=== PATIENT | female | born 1940 | race Caucasian/White ===

== ENCOUNTER 2016-11-26 17:43 | Emergency (ER) | payer SELFPAY ==
--- NOTE | 2016-11-26 21:07 | ED CLINICAL REPORT ---
Clinical Report - Physicians/Mid Levels [facility] [address] [place] [address] 11/26/2016 17:44 Patient: KRISTINA BO Time Seen: 18:44. Arrived- By private vehicle. Historian- patient. HISTORY OF PRESENT ILLNESS Chief Complaint: Weakness, hasn't been drinking, "I might have a UTI". At its maximum, severity described as moderate. When seen in the E.D., severity described as moderate. Modifying factors. Not worsened by anything. Not relieved by anything. This started several days ago and is still present. The patient has had loss of appetite (chronically). No weight loss, headache, visual disturbance, fatigue or muscle aches. Denies sleep problem. No decreased urine output. She has had new onset of generalized weakness, (mild). (Pt states she gets UTIs a lot, and thinks she may have another one. Pt has also had a cough. She has not been drinking much water, and son states pt has not been getting out of bed as much. No fevers. Pt denies further complaints.). Similar symptoms previously: Occasionally. Recent medical care: Not recently seen/assessed. REVIEW OF SYSTEMS No fever, sore throat, sinus drainage, nasal congestion or cough. No difficulty breathing, chest pain, abdominal pain, nausea or vomiting. No diarrhea, black stools, bloody stools, chills or difficulty with urination. No skin rash, back pain, calf pain, headache or blackouts. No double vision. No difficulty with ambulation. All systems otherwise negative, except as recorded above. PAST HISTORY Problems: Anxiety Reaction. Hypercholesterolemia. Fibromyalgia. Hypertension. Additional Surgeries: Appendectomy. DIAPHRAGM REPAIR. Lumpectomy of breast. Medications: Atorvastatin Calcium Oral (Tablet 40 mg) 1 tablet, at bedtime. AmLODIPine Besylate Oral (Tablet 10 mg) 1 tablet, daily. BuPROPion HBr Oral 150 mg , BID. OxyCODONE HCl Oral (Tablet 10 mg) 1 tablet, 4x a day. ALPRAZolam Oral (Tablet 0.5 mg) 1 tablet, 4x a day as needed. Atenolol Oral (Tablet 50 mg) 1 tablet, 2x a day. Temazepam Oral (Capsule 30 mg) 1 capsule, at bedtime. Allergies: Ceclor. SOCIAL HISTORY Never smoker. No alcohol use or drug use. ADDITIONAL NOTES The nursing notes have been reviewed. PHYSICAL EXAM Vital Signs: 11/26/2016 18:47 BP: 151/81. HR: 75. RR: 18. O2 saturation: 98%. Temp: 97.7 F. Have been reviewed. Appearance: Alert. No acute distress. (Pt is bright, alert, and well-appearing.). Eyes: Pupils equal, round and reactive to light. Eyes normal inspection. ENT: Nose normal. Neck: Normal inspection. CVS: Normal heart rate and rhythm. Heart sounds normal. Pulses normal. Respiratory: No respiratory distress. Breath sounds normal. Abdomen: No visible injury. Soft and nontender. Back: Normal inspection. Skin: Skin warm and dry. Normal skin color. No rash. Normal skin turgor. Extremities: Extremities exhibit normal ROM. No lower extremity edema. Neuro: No motor deficit. No sensory deficit. (Pt answers questions coherently and appropriately.). LABS, X-RAYS, AND EKG Laboratory Tests: UA-Culture if indicated: (CHRISTIAN: 11/26/2016 20:05) ( MsgRcvd 11/26/2016 20:21) Final results Test Result Flag Units (Reference) URINE COLOR STRAW URINE APPEARANCE CLEAR URINE GLUCOSE NEGATIVE (NEGATIVE) URINE BILIRUBIN NEGATIVE (NEGATIVE) URINE KETONE NEGATIVE (NEGATIVE) URINE SPECIFIC GRAVITY <= 1.005 L (1.010-1.030) URINE PH 5.5 (5.0-8.0) URINE PROTEIN NEGATIVE (NEGATIVE) URINE UROBILINOGEN 0.2 EU/dL (0.2-1.0) URINE NITRITE NEGATIVE (NEGATIVE) URINE BLOOD NEGATIVE (NEGATIVE) URINE LEUK ESTERASE NEGATIVE (NEGATIVE) URINE RBC NONE SEEN rbc/hpf (0-1) URINE WBC 0-1 wbc/hpf (0-1) URINE EPITHELIAL CELLS 0-1 EPI/hpf (0-5) URINE BACTERIA MANY (4+) (NONE SEEN) URINE COMMENT CULTURE INDICATED URINE CULTURES ARE SET-UP BASED ON THE FOLLOWING CRITERIA:POSITIVE NITRITEPOSITIVE LEUKOCYTE ESTERASEGREATER THAN 10 WHITE BLOOD CELLSMODERATE (2+) OR GREATER BACTERIA CBC w Diff: (CHRISTIAN: 11/26/2016 19:20) ( MsgRcvd 11/26/2016 19:42) Final results Test Result Flag Units (Reference) WHITE BLOOD COUNT 9.6 K/uL (4.5-11.5) RED BLOOD COUNT 4.35 M/uL (4.00-5.20) HEMOGLOBIN 13.4 gm/dL (12.0-16.0) HEMATOCRIT 39.7 % (36.0-46.0) MEAN CELL VOLUME 91 fL (80-100) MEAN CORPUSCULAR HGB 31 pg (26-34) MEAN CORPUSCULAR HGB CONC 34 g/dL (31-37) RED CELL DISTRIBUTION WIDTH 12.8 % (11.6-14.8) PLATELET COUNT 292 K/uL (150-400) NEUTROPHIL % 74.2 % (50-75) LYMPH % 18.3 L % (25-40) MONO % 6.3 % (3-14) EOSINOPHIL % 0.8 % (0-4) BASOPHIL % 0.4 % (0-2) CMP: (CHRISTIAN: 11/26/2016 19:20) ( MsgRcvd 11/26/2016 19:43) Final results Test Result Flag Units (Reference) GLUCOSE 105 mg/dL (70-110) BUN 14 mg/dL (7-18) CREATININE 1.4 H mg/dL (0.6-1.3) Estimated GFR 39.07 mL/min Estimated GFR- 47.35 mL/min Note: Persistent reduction over 3 months in eGFR<60 mL/min/1.73 m2 defines CKD. Patients with eGFR values>=60 mL/min/1.73 m2 may also have CKD if evidence ofpersistent proteinuria. Additional information may be foundat www.kidney.org. SODIUM 144 mmol/L (136-145) POTASSIUM 4.0 mmol/L (3.5-5.1) CHLORIDE 107 mmol/L (98-107) CARBON DIOXIDE 25 mmol/L (21-32) CALCIUM 8.8 mg/dL (8.5-10.1) TOTAL PROTEIN 6.7 g/dL (6.4-8.2) ALBUMIN 3.6 g/dL (3.3-5.0) BILIRUBIN, TOTAL 0.4 mg/dL (0.0-1.0) ALKALINE PHOSPHATASE 90 U/L (46-116) AST (SGOT) 15 U/L (15-37) ALT (SGPT) 15 U/L (12-78) . Pulse Oximetry: 11/26/2016 18:47 O2 saturation: 98%. (FIO2 - room air). Interpretation: normal. PROGRESS AND PROCEDURES Course of Care: Pt was worked up and given IV fluids. Work-up was negative, and pt reported feeling much better after fluids. Pt and son were comfortable with and desirous of discharge of the pt. Patient counseled in person regarding the patient's stable condition, test results, diagnosis and need for follow-up. Concerns were addressed. Old medical records reviewed. Disposition: Discharged. Condition: stable and improved. CLINICAL IMPRESSION Mild dehydration Acute viral (presumed) rhinitis. No airway obstruction. INSTRUCTIONS (Your labs look good. You do not have a urinary tract infection at this time. Please drink plenty of fluids to help you feel better.). Warnings: GENERAL WARNINGS: Return or contact your physician immediately if your condition worsens or changes unexpectedly, if not improving as expected, or if other problems arise. Your Current Medications: CONTINUE TAKING THE FOLLOWING MEDICATIONS: ALPRAZolam Oral : Tablet 0.5 mg, 1 tablet 4x a day, prn. AmLODIPine Besylate Oral : Tablet 10 mg, 1 tablet daily. Atenolol Oral : Tablet 50 mg, 1 tablet 2x a day. Atorvastatin Calcium Oral : Tablet 40 mg, 1 tablet at bedtime. BuPROPion HBr Oral : 150 mg BID. OxyCODONE HCl Oral : Tablet 10 mg, 1 tablet 4x a day. Temazepam Oral : Capsule 30 mg, 1 capsule at bedtime. Follow-up: Follow up with your doctor in five days if not better. Understanding of the discharge instructions verbalized by patient and family. (Electronically signed by Rosy Ricks MD 12/05/2016 0:03) Addenda for KRISTINA BO VisitID: [id number] Date: 11/26/2016 11/29/2016 17:12 Spoke with pt over the phone and informed her of the need to put her on macrobid for her UTI. Pt requested rx be phoned to [facility] in [place]. This RN phoned in rx to Maame at [facility] in [place] at 1710 on 11/29/2016. (Electronically signed by Nasrin Mcgrath R.N. - 11/29/2016 17:12)
--- NOTE | 2016-11-26 21:07 | ED ORDER SUMMARY ---
..... Patient: KRISTINA BO OrderSheet [facility] VisitID: [id number] [address] [place] [address] 76y, F Registration Date/Time: 11/26/2016 ORDER SHEET Weight: 53.0 kg (stated) Allergies: Ceclor GENERAL ORDERS: CBC w Diff Urgent (:11/26/2016 EIndgabrielle R.N. verbal order read back to Khoa LEZAMA) (Ack 19:35 LTapper) (20:08 AMcQuoid ER Tech1) CMP Urgent (:11/26/2016 EInderjuzen R.N. verbal order read back to Khoa LEZAMA) (Ack 19:35 LTapper) (20:08 AMcQuoid ER Tech1) UA-Culture if indicated Urgent (:11/26/2016 EIndgabrielle R.N. verbal order read back to Khoa LEZAMA) (Ack 19:35 LTapper) (20:08 AMcQuoid ER Tech1) MEDICATION ORDERS: IV FLUIDS: IV NS : initial bolus none -, then 1000 mL/hr for X1 (NOW); Stat (19:23 11/26/2016 EIndgabrielle R.N. verbal order read back to Khoa LEZAMA) (19:24 EInderbitzen R.N.) IV Saline Lock (:11/26/2016 EIsekou R.N. verbal order read back to Khoa LEZAMA) (19:23 EInderjuzen R.N.) ORDER SHEET NOTES: [Electronically signed by Bee Hernandez R.N. (22:55 11/26/2016)] [Electronically signed by Rosy Ricks MD (00:03 12/05/2016)] [Electronically locked/signed by Bee Hernandez R.N. (22:55 11/26/2016)]
--- NOTE | 2016-11-26 21:07 | ED NURSING NOTES ---
Clinical Report - Nurses [facility] [address] [place] [address] 11/26/2016 17:44 Patient: KRISTINA BO TRIAGE Triage time 18:46 Nov 26 2016. Acuity: LEVEL 3. 18:47 11/26/16. TIO COMA SCORE: Tio Coma Scale: 15- eyes open spontaneously (4); best verbal response- oriented x 4 (5); best motor response- obeys commands (6). --19:02 Bee Hernandez R.N. 18:47 11/26/16. BP: 151/81. HR: 75. RR: 18. O2 saturation: 98%. Temp: 97.7 F. --19:02 Bee Hernandez R.N. Chief Complaint: FATIGUE, HEADACHE and WEAKNESS. --22:55 Bee Hernandez R.N. Weight: 53 kg stated. Height/Length: 60 inches Per Patient. BMI: 22.8. --18:45 Bee Hernandez R.N. Medications Temazepam Oral (Capsule 30 mg) 1 capsule, at bedtime. --18:48 Bee Hernandez R.N. Atenolol Oral (Tablet 50 mg) 1 tablet, 2x a day. --18:48 Bee Hernandez R.N. ALPRAZolam Oral (Tablet 0.5 mg) 1 tablet, 4x a day as needed. --18:48 Bee Hernandez R.N. OxyCODONE HCl Oral (Tablet 10 mg) 1 tablet, 4x a day. --18:49 Bee Hernandez R.N. BuPROPion HBr Oral 150 mg , BID. --18:49 Bee Hernandez R.N. AmLODIPine Besylate Oral (Tablet 10 mg) 1 tablet, daily. --18:50 Bee Hernandez R.N. Atorvastatin Calcium Oral (Tablet 40 mg) 1 tablet, at bedtime. --18:50 Bee Hernandez R.N. Medication/allergy information source: the patient. --19:02 Bee Hernandez R.N. Allergies Ceclor. --18:59 Bee Hernandez R.N. History Arrived by private vehicle. Historian: patient and family. Accompanied by family. ( Per son, hasn't gotten out of bed for 3 days, confused, rambling and not making sense. Pt thinks she may have UTI). She has had weakness and a cough. ( Urinary urgency, dysuria, foul smelling urine). No fever. Treatment ENVIRONMENTAL ENGINEERING INTERN: None. PAST MEDICAL HX: The patient is post-menopausal. SOCIAL HX: Never smoker. No alcohol use or drug use. No infectious disease exposure. ABUSE ASSESSMENT: No report of abuse. SELF HARM ASSESSMENT: A self harm assessment was performed. The patient answered "no" to the question "Have you recently felt down, depressed, or hopeless?", "Have you noticed less interest or pleasure in doing things?", "Do you have thoughts of harming or killing yourself?", "Are you here because you tried to hurt yourself?", "Have you ever tried to hurt yourself before today?", "Have you recently had thoughts about harming or killing others?" and "Do you have any dangerous items in your possession?". NUTRITIONAL RISK ASSESSMENT: The nutritional risk assessment revealed no deficiencies. LEARNING NEEDS ASSESSMENT: The learning needs assessment revealed no barriers. 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 No communication barrier. No visual impairment. No cognitive impairment. SKIN INTEGRITY ASSESSMENT: Skin integrity risk assessment completed. No skin integrity risk identified. LEZAMA FALL SCALE: Lezama Fall Scale Score: 55 (45 or greater = High Risk). The patient ambulates using furniture, forgets limitations. The patient's gait is weak during transfer. --19:02 Bee Hernandez R.N. PROBLEMS: Anxiety Reaction. Hypercholesterolemia. Fibromyalgia. Hypertension. --18:53 Bee Hernandez R.N. ADDITIONAL SURGERIES: Appendectomy. DIAPHRAGM REPAIR. Lumpectomy of breast. STAPENDECTOMY. --18:53 Bee Hernandez R.N. Interventions ID band on patient. --19:02 Bee Hernandez R.N. PHYSICAL ASSESSMENT 19:00 11/26/16. To room via stretcher. Patient gowned. GENERAL / NEURO / PSYCH: Alert. She has had weakness. HEENT: No facial asymmetry noted. ( oral membranes dry). Mucous membranes are pink. RESPIRATORY: Breath sounds within normal limits. CVS: Pulses within normal limits. GI / : Abdomen nontender. SKIN: Skin intact. Skin is warm and dry. Normal skin turgor. --19:03 Bee Hernandez R.N. NURSING PROGRESS NOTES 18:48 11/26/16. The initial plan of care for this patient includes an assessment with efforts to address the presence of pain; impairment of the genitourinary system; hydration needs. This plan of care was discussed with the patient. Patient gowned. Reassurance given. Patient identifiers checked. Call light placed in reach. Side rails up x 1. Bed placed in lowest position. Brakes of bed on. Patient ready for evaluation. --19:02 Bee Hernandez R.N. 19:07 11/26/16. ( Patient attempted to provide urine but dropped specimen cup in commode.). --19:07 Bee Hernandez R.N. 19:20 11/26/2016 Site #1 started via IV in the right hand with an 20g angiocath, with aseptic technique and good blood return; one attempt. Blood drawn: rainbow set. Labeled in the presence of the patient and sent to the lab. Saline lock flushed with 10 mL saline. --19:23 Bee Hernandez R.N. 19:24 11/26/2016 Started bag #1 1000 mL IV Fluids IV NS (Saline); at 1000 mL/hr over 1 hour(s) via site #1. Allergies verified and confirmed 5 rights. IV patency established. IV site checked: no pain, redness, or swelling. IV flushed thoroughly pre- and post-medication administration. --19:24 Bee Hernandez R.N. 20:07. Checked patient name and birthdate. Clean catch urine collected; sample sent to lab. Specimen labeled in the presence of the patient (Patient ambulatory to restroom, assisted by family). --20:08 McQuoid, Alize, ER Tech1 20:20 11/26/16. Reassessment after fluids administered. She is calm and resting quietly. Overall patient status is improved- she states feels better. RESPIRATORY: No respiratory distress. SKIN: Skin is warm and dry. Patient waiting for disposition. --20:20 Bee Hernandez R.N. 20:20 11/26/16. BP: 119/58. HR: 89. RR: 16. O2 saturation: 100%. Pain level now 0/10. --20:20 Bee Hernandez R.N. DISPOSITION / DISCHARGE 20:00 11/26/2016 IV Fluids IV NS Discontinued: bag #1 completed. Total amount infused: 1000 mL. IV patency established. IV site checked: no pain, redness, or swelling. IV flushed thoroughly. --22:52 Bee Hernandez R.N. 21:15 11/26/2016 Site #1 removed upon discharge. Catheter intact. Pressure dressing applied. --22:53 Bee Hernandez R.N. 21:19 11/26/16. Condition at departure: improved and stable. The goals identified in the patient's plan of care were met. No learning barriers present. Reviewed referral to a primary care physician for followup. Patient and family verbalized understanding. Written instructions provided in Honduran. The patient was discharged home and accompanied by family. She left the Emergency Department ambulatory and via private vehicle. Family member driving. FALL RISK ASSESSMENT: Fall risk assessment completed. No fall risk identified. --22:54 Bee Hernandez R.N. 21:19 11/26/16. BP: 116/50. HR: 76. RR: 18. O2 saturation: 100%. Temp: 98.0 F. Pain level now 0/10. --22:54 Bee Hernandez R.N. Departure time: 21:19 Nov 26 2016. --22:54 Bee Hernandez R.N. 22:55 11/26/16. Pain level now 0/10. --22:55 Bee Hernandez R.N. Locked/Released at 11/26/2016 22:55 by Bee Hernandez R.N.
--- NOTE | 2016-11-26 21:07 | ED ORDER SUMMARY ---
..... Patient: KRISTINA BO OrderSheet [facility] VisitID: [id number] [address] [place] [address] 76y, F Registration Date/Time: 11/26/2016 ORDER SHEET Weight: 53.0 kg (stated) Allergies: Ceclor GENERAL ORDERS: CBC w Diff Urgent (:11/26/2016 EIndgabrielle R.N. verbal order read back to Khoa LEZAMA) (Ack 19:35 LTapper) (20:08 AMcQuoid ER Tech1) CMP Urgent (:11/26/2016 EInderjuzen R.N. verbal order read back to Khoa LEZAMA) (Ack 19:35 LTapper) (20:08 AMcQuoid ER Tech1) UA-Culture if indicated Urgent (:11/26/2016 EIndgabrielle R.N. verbal order read back to Khoa LEZAMA) (Ack 19:35 LTapper) (20:08 AMcQuoid ER Tech1) MEDICATION ORDERS: IV FLUIDS: IV NS : initial bolus none -, then 1000 mL/hr for X1 (NOW); Stat (19:23 11/26/2016 EIndgabrielle R.N. verbal order read back to Khoa LEZAMA) (19:24 EInderbitzen R.N.) IV Saline Lock (:11/26/2016 EIsekou R.N. verbal order read back to Khoa LEZAMA) (19:23 EInderjuzen R.N.) ORDER SHEET NOTES: [Electronically signed by Bee Hernandez R.N. (22:55 11/26/2016)] [Electronically signed by Rosy Ricks MD (00:03 12/05/2016)] [Electronically locked/signed by Bee Hernandez R.N. (22:55 11/26/2016)]
--- NOTE | 2016-12-05 00:03 | ED DISCHARGE INSTRUCTIONS ---
Patient: KRISTINA BO General Instructions [facility] VisitID: [id number] [address] [place] [address] 76y, F Registration Date/Time: 11/26/2016 Mild dehydration Acute viral (presumed) rhinitis. No airway obstruction. INSTRUCTIONS (Your labs look good. You do not have a urinary tract infection at this time. Please drink plenty of fluids to help you feel better.). Warnings: GENERAL WARNINGS: Return or contact your physician immediately if your condition worsens or changes unexpectedly, if not improving as expected, or if other problems arise. Your Current Medications: CONTINUE TAKING THE FOLLOWING MEDICATIONS: ALPRAZolam Oral : Tablet 0.5 mg, 1 tablet 4x a day, prn. AmLODIPine Besylate Oral : Tablet 10 mg, 1 tablet daily. Atenolol Oral : Tablet 50 mg, 1 tablet 2x a day. Atorvastatin Calcium Oral : Tablet 40 mg, 1 tablet at bedtime. BuPROPion HBr Oral : 150 mg BID. OxyCODONE HCl Oral : Tablet 10 mg, 1 tablet 4x a day. Temazepam Oral : Capsule 30 mg, 1 capsule at bedtime. Follow-up: Follow up with your doctor in five days if not better. Understanding of the discharge instructions verbalized by patient and family. ADDITIONAL INFORMATION Dehydration (Adult) Dehydration occurs when your body loses too much fluid. This may be the result of vomiting a lot or from diarrhea,sweating a lot, or a high fever. It may also happen if you dont drink enough fluid when youre sick. Misuse of diuretics (water pills) can also be a cause. Symptoms include thirst and feeling dizzy, weak, fatigued, or very drowsy. The diet described below is usually enough to treat most cases. Sometimes you may needmedicine. Home Care Follow these guidelines for home care: Drink at least 12 8-ounce glasses of fluid every day to overcome the dehydration. Fluid may include water; orange juice; lemonade; apple, grape, and cranberry juice; clear fruit drinks; electrolyte replacement and sports drinks; and teas and coffee without caffeine. If you have been diagnosed with a kidney disease, ask your doctor how much and what types of fluids you should drink to prevent dehydration. If you have kidney disease, drinking too much fluid can cause it build up in the your body and be dangerous to your health. If you have fever, muscle aching, or headache from a viral syndrome, you may useacetaminophen or ibuprofen, unless another medicine was prescribed for this.If you have chronic liver or kidney disease or ever had a stomach ulcer or GI bleeding, talk with your doctor before using these medicines. Don't take aspirin if you are younger than 18 and are ill with a fever.Aspirin raises the chance forsevere liver injury. Follow-up care Follow up with your health care provider if you don't get better in the next 24 to 48 hours. When to seek medical care Get prompt medical attention if any of theseoccur: Continued vomiting (cant keep liquids down) Frequent diarrhea (more than 5 times a day); blood (red or black color) or mucus in diarrhea Blood in vomit or stool Swollen abdomen or increasing abdominal pain Weakness, dizziness, or fainting Unusually drowsy or confused Reduced urine output or extreme thirst Fever of 100.4 F (38 C) oral or higher that does not get better with fever medication Viral Respiratory Illness [Adult] You have an Upper Respiratory Illness (URI) caused by a virus. This illness is contagious during the first few days. It is spread through the air by coughing and sneezing or by direct contact (touching the sick person and then touching your own eyes, nose or mouth). Most viral illnesses go away within 7-10 days with rest and simple home remedies. Sometimes, the illness may last for several weeks. Antibiotics will not kill a virus and are generally not prescribed for this condition. Home Care: 1) If symptoms are severe, rest at home for the first 2-3 days. When you resume activity, don't let yourself get too tired. 2) Avoid being exposed to cigarette smoke (yours or others). 3) Tylenol (acetaminophen) or ibuprofen (Advil, Motrin) will help fever, muscle aching and headache. (Persons under 18 with fever should not take aspirin since this may cause liver damage.) 4) Your appetite may be poor, so a light diet is fine. Avoid dehydration by drinking 6-8 glasses of fluids per day (water, soft drinks, juices, tea, soup). Extra fluids will help loosen secretions in the nose and lungs. 5) Aitj-gzd-hoxnqvj cold medicines will not shorten the length of time youre sick, but they may be helpful for the following symptoms: cough (Robitussin DM); sore throat (Chloraseptic lozenges or spray); nasal and sinus congestion (Actifed, Sudafed, Chlortrimeton). Follow Up with your doctor or as advised if you dont improve over the next week. Get Prompt Medical Attention if any of the following occur: -- Cough with lots of colored sputum (mucus) or blood in your sputum -- Chest pain, shortness of breath, wheezing or have trouble breathing -- Severe headache; face, neck or ear pain -- Fever over 100.4 F (38.0 C) for more than three days -- You cant swallow due to throat pain You have been given the following additional information: Dehydration (Adult) Uri, Viral, No Abx (Adult) (Electronically signed by Rosy Ricks MD 12/05/2016 0:03)
--- NOTE | 2016-12-05 00:04 | ED MED RECONCILIATION SUMMARY ---
Patient: KRISTINA BO Medication Reconciliation Report [facility] VisitID: [id number] [address] [place] [address] 76y, F Registration Date/Time: 11/26/2016 Weight: 53.0 kg Height/Length: 60 in. BMI: 22.8 ALLERGIES: Ceclor The patient's Home Medications are listed below: CONTINUE TAKING THE FOLLOWING MEDICATIONS: ALPRAZolam Oral (0.5 mg) 1 tablet, 4x a day AmLODIPine Besylate Oral (10 mg) 1 tablet, daily Atenolol Oral (50 mg) 1 tablet, 2x a day Atorvastatin Calcium Oral (40 mg) 1 tablet, at bedtime BuPROPion HBr Oral 150 mg , BID OxyCODONE HCl Oral (10 mg) 1 tablet, 4x a day Temazepam Oral (30 mg) 1 capsule, at bedtime The source(s) of the original Home Medication information: patient The following Medications were given to the patient in the Emergency Department: IV NS IV Fluids bolus 0, then 1000 mL/hr, administered: 11/26/2016 7:24:00 PM The following Medications were prescribed to the patient: None.
--- NOTE | 2016-12-05 00:04 | ED MAR SUMMARY ---
..... Medication Administration Record [facility] [address] [place] [address] Patient: KRISTINA BO Visit ID: [id number] 76y, F Weight: 53.0 kg Height/Length: 60 in BMI: 22.8 ALLERGIES: Ceclor Start 19:24 11/26/2016 Bee Hernandez R.N., Stop 20:00 11/26/2016 Bee Hernandez R.N. Medication Administered: IV NS (SALINE), Dose: IV Fluids over 1 hour(s), Rate: 1000 mL/hr, Dispensed: 1000 mL bag, Site: #1 right hand. Medication Ordered: IV NS : initial bolus none -, then 1000 mL/hr for X1 (NOW); Stat.
--- NOTE | 2016-12-05 00:04 | ED MAR SUMMARY ---
..... Medication Administration Record [facility] [address] [place] [address] Patient: KRISTINA BO Visit ID: [id number] 76y, F Weight: 53.0 kg Height/Length: 60 in BMI: 22.8 ALLERGIES: Ceclor Start 19:24 11/26/2016 Bee Hernandez R.N., Stop 20:00 11/26/2016 Bee Hernandez R.N. Medication Administered: IV NS (SALINE), Dose: IV Fluids over 1 hour(s), Rate: 1000 mL/hr, Dispensed: 1000 mL bag, Site: #1 right hand. Medication Ordered: IV NS : initial bolus none -, then 1000 mL/hr for X1 (NOW); Stat.
--- NOTE | 2016-12-05 00:04 | ED MED RECONCILIATION SUMMARY ---
Patient: KRISTINA BO Medication Reconciliation Report [facility] VisitID: [id number] [address] [place] [address] 76y, F Registration Date/Time: 11/26/2016 Weight: 53.0 kg Height/Length: 60 in. BMI: 22.8 ALLERGIES: Ceclor The patient's Home Medications are listed below: CONTINUE TAKING THE FOLLOWING MEDICATIONS: ALPRAZolam Oral (0.5 mg) 1 tablet, 4x a day AmLODIPine Besylate Oral (10 mg) 1 tablet, daily Atenolol Oral (50 mg) 1 tablet, 2x a day Atorvastatin Calcium Oral (40 mg) 1 tablet, at bedtime BuPROPion HBr Oral 150 mg , BID OxyCODONE HCl Oral (10 mg) 1 tablet, 4x a day Temazepam Oral (30 mg) 1 capsule, at bedtime The source(s) of the original Home Medication information: patient The following Medications were given to the patient in the Emergency Department: IV NS IV Fluids bolus 0, then 1000 mL/hr, administered: 11/26/2016 7:24:00 PM The following Medications were prescribed to the patient: None.
== END 2016-11-26 21:19 | disposition home or self-care (01) ==
LOC: ED SRH 17:43
DX: E86.0 Dehydration (principal); J00 Acute nasopharyngitis [common cold]; I10 Essential (primary) hypertension; E78.00 Pure hypercholesterolemia, unspecified; Z79.891 Long term (current) use of opiate analgesic; Z79.899 Other long term (current) drug therapy; Z88.1 Allergy status to other antibiotic agents
CPT/HCPCS: 90004; 90100; 90148; 90469; 95059